=== PATIENT | male | born 1940 | race Caucasian/White ===

== ENCOUNTER 2017-01-19 02:08 | Emergency (ER) | payer MEDICARE ==
[2017-01-19] MEDS ORDERED: Lidocaine 1% w/Epinephrine 1:100K 20 ML VIAL ONE (02:21)
[2017-01-19] MEDS ORDERED: Triple Antibiotic Oint 1 GM Packet ONE (02:29)
== END 2017-01-19 02:32 | disposition home or self-care (01) ==
LOC: MADERS 02:08
DX: L76.21 Postprocedural hemorrhage of skin and subcutaneous tissue following a dermatologic procedure (principal); I25.10 Atherosclerotic heart disease of native coronary artery without angina pectoris; E11.9 Type 2 diabetes mellitus without complications; I10 Essential (primary) hypertension; F17.220 Nicotine dependence, chewing tobacco, uncomplicated; Z79.82 Long term (current) use of aspirin; Z79.01 Long term (current) use of anticoagulants
CPT/HCPCS: 99283; J2001

== ENCOUNTER 2019-05-04 20:52 | Emergency (ER) | payer MEDICARE ==
[2019-05-04] MEDS ORDERED: Magnesium Citrate 300 ML BOT ONE (21:42)
== END 2019-05-04 21:50 | disposition home or self-care (01) ==
LOC: MADERS 20:52
DX: K59.00 Constipation, unspecified (principal); I25.10 Atherosclerotic heart disease of native coronary artery without angina pectoris; E11.9 Type 2 diabetes mellitus without complications; I10 Essential (primary) hypertension; F17.220 Nicotine dependence, chewing tobacco, uncomplicated; Z79.82 Long term (current) use of aspirin; Z79.899 Other long term (current) drug therapy
CPT/HCPCS: 99283

== ENCOUNTER 2021-04-28 18:02 | Emergency (ER) | payer MEDICARE | END 2021-04-28 18:48 | disposition home or self-care (01) | LOC: MADERS 18:02 | DX: M27.69 Other endosseous dental implant failure (principal); I25.10 Atherosclerotic heart disease of native coronary artery without angina pectoris; E11.9 Type 2 diabetes mellitus without complications; I10 Essential (primary) hypertension; Z79.82 Long term (current) use of aspirin; Z79.01 Long term (current) use of anticoagulants; Z79.84 Long term (current) use of oral hypoglycemic drugs; Z79.899 Other long term (current) drug therapy | CPT/HCPCS: 99283 ==

== ENCOUNTER 2022-12-13 15:29 | Emergency (ER) | payer MEDICARE | END 2022-12-13 17:45 | disposition home or self-care (01) | LOC: MADERS 15:29 | DX: K11.8 Other diseases of salivary glands (principal); H44.522 Atrophy of globe, left eye; E11.9 Type 2 diabetes mellitus without complications; I10 Essential (primary) hypertension; I25.10 Atherosclerotic heart disease of native coronary artery without angina pectoris; F17.220 Nicotine dependence, chewing tobacco, uncomplicated; Z79.899 Other long term (current) drug therapy; Z79.84 Long term (current) use of oral hypoglycemic drugs; Z79.82 Long term (current) use of aspirin | CPT/HCPCS: 70486 ==